=== PATIENT | male | born 1990 | race Hispanic/Latino ===

== ENCOUNTER 2016-06-11 09:00 | Emergency (ER) | payer SELFPAY ==
[2016-06-11] MEDS ORDERED: Dexamethasone 4 mg/ml Vial ONE (09:19)
--- NOTE | 2016-06-11 09:31 | ERRECORD ---
[facility] EMERGENCY RECORD HPI FOOT (09:17 JPIP) CHIEF COMPLAINT: Patient presents for evaluation of Heavy feed bag fell on his foot. Was seen in ED 29Dec for same. HISTORIAN: History provided by patient. MECHANISM OF INJURY: Known mechanism, Mechanism of injury: contusion with feed bag. LOCATION: Symptoms are localized, most severe to proximal dorsal right foot. QUALITY: Pain is dull in nature. SEVERITY: Current severity of pain rated as 4/10. TIME COURSE: Sudden onset of symptoms, Date and time of onset was 29dec, Symptoms are improving, has improved but not enough per patient., are constant. ASSOCIATED WITH: No associated distal neuro complaint, No associated open wounds, Associated with pain on walking, No associated proximal injury, No associated tingling, No associated warmth. EXACERBATED BY: Patient's condition exacerbated by walking, Patient's condition exacerbated by bearing weight. RELIEVED BY: Patient's condition relieved by nothing. ROS (09:19 JPIP) MUSCULOSKELETAL: Historian reports injury, reports joint stiffness, denies joint swelling. SKIN: Historian denies rash, denies skin changes, denies skin lesions. NEUROLOGIC: Historian denies paresthesias. NOTES: All systems reviewed, negative except as described above. PAST MEDICAL HISTORY MEDICAL HISTORY: Tetanus immunization up to date, No past medical history, Flu vaccine not up to date, , Pneumococcal vaccine not up to date. No past medical history. (09:04 KMOR) MALE SURGICAL HISTORY: Patient has no surgical history. Patient has no surgical history. 06/05/16. (09:04 KMOR) PSYCHIATRIC HISTORY: No previous psychiatric history. (09:04 KMOR) SOCIAL HISTORY: Patient denies alcohol use, Patient denies drug use, Patient currently uses tobacco, smokes cigarettes, 1 PACK EVERY 2 WEEKS. Patient currently uses tobacco. 06/05/16. (09:04 KMOR) FAMILY HISTORY: Family history is non-contributory to this case. (09:04 KMOR) NOTES: Nursing records reviewed, Old chart reviewed, Medication list reviewed. (09:21 JPIP) KNOWN ALLERGIES No Known Allergies CURRENT MEDICATIONS (09:04 KMOR) None &a-1R&a+25V*p+0X*x1361W*c202B*c15G*c2P*p-0X&a-25V&a+1R Name: Pete Richard : 1990 M25 MedRec: [id number] AcctNum: [id number] Prepared: ThuJun 11, 2016 09:29 by Interface Page 1 of 3 pMD [facility] EMERGENCY RECORD VITAL SIGNS VITAL SIGNS: Resp: 18, Pain: 4, Time: 06/11/2016 09:03. (09:03 KMOR) BP: 135/76, Pulse: 83, Temp: 98.1 (Oral), O2 sat: 96 on Room Air, Time: 06/11/2016 09:04. (09:04 KMOR) PHYSICAL EXAM (09:19 JPIP) CONSTITUTIONAL: Vital Signs Reviewed, Patient afebrile, Pulse normal, Blood pressure normal, Respiratory rate normal, Patient appears, uncomfortable, Patient alert and oriented to person, place and time, Nursing notes reviewed. HEAD: Head exam included findings of head atraumatic, normocephalic. EYES: Eye exam included findings of eyelids normal to inspection, Conjunctiva normal, Sclera normal, no periorbital ecchymosis, no periorbital edema, no periorbital erythema. RESPIRATORY CHEST: Respiratory exam included findings of no respiratory distress. LOWER EXTREMITY: Lower extremity exam included findings of inspection normal, no abrasions, no contusions, no deformity, no lacerations, Range of motion, Right ankle:, Active range of motion causes pain, Passive range of motion causes pain, Pedal pulse normal, capillary refill less than 2 seconds, distal motor intact, no edema, Tendon function normal, Foot tenderness, right foot, dorsal, proximal foot TTP, no edema no discoloration no swelling. NEURO: Phong coma scale 15, no focal motor deficits. SKIN: Skin exam included findings of skin warm, dry, and normal in color. PSYCHIATRIC: Psychiatric exam included findings of patient oriented to person place and time, Normal affect. MEDICATION ADMINISTRATION SUMMARY Drug Name: dexamethasone, Dose Ordered: 12 mg, Route: Oral, Status: Given, Time: 09:20 06/11/2016, Detailed record available in Medication Service section. DOCTOR NOTES (09:16 JPIP) TEXT: advised patient if symptoms continue may need to have an MRI, will need to follow up with PCP to schedule this. PROBLEM LIST No recorded problems DIAGNOSIS (09:22 JPIP) FINAL: PRIMARY: Foot contusion. &a-1R&a+25V*p+0X*e0708M*c202B*c15G*c2P*p-0X&a-25V&a+1R Name: Pete Richard : 1990 [facility] MedRec: [id number] AcctNum: [id number] Prepared: ThuJun 11, 2016 09:29 by Interface Page 2 of 3 pMD [facility] EMERGENCY RECORD PRESCRIPTION (09:13 JPIP) diclofenac oral: TABLET, DELAYED RELEASE (ENTERIC COATED) : 75 mg : ORAL : Quantity: 1 Unit: tab(s) Route: ORAL Schedule: 2 times a day (with meals) Dispense: 30 May substitute. Refills: No Refills . NOTES: as needed for pain No refills. DISPOSITION PATIENT: Disposition Type: Discharge, Disposition: *Discharge Home, Condition: Good. (09:22 JPIP) Patient left the department. (09:27 ERUI) Benavidez: DOREEN=TONY Mutsafa, Loretta JPIP=DO Garcia Joseph KMOR=TONY Hannon, Trena &a-1R&a+25V*p+0X*p5438A*c202B*c15G*c2P*p-0X&a-25V&a+1R Name: Pete Richard : 1990 5 MedRec: [id number] AcctNum: [id number] Prepared: ThuJun 11, 2016 09:29 by Interface Page 3 of 3 pMD MTDD
--- NOTE | 2016-06-11 09:34 | PICIS ---
[facility] EMERGENCY RECORD TRIAGE (09:04 KMOR) TRIAGE NOTES: Right foot pain x 1 week, no getting better. (09:04 KMOR) PATIENT: NAME: Pete Richard, AGE: 25, GENDER: male, : Sun 1990, TIME OF GREET: ThuJun 11, 2016 09:00, PREFERRED LANGUAGE: Romanian, ETHNICITY: or , ECODE BILLING MAP: [facility], SSN: [id number], Zip Code: [address], KG WEIGHT: [phone], PHONE: , , , PERSON ID: [id number], PAYMENT: SJX Self Pay, PCP: none. (09:04 KMOR) COMPLAINT: right foot pain. (09:04 KMOR) ADMISSION: URGENCY: 4 Non Urgent, ADMISSION SOURCE: Home, TRANSPORT: CAR, BED: ER -02. (09:04 KMOR) PROVIDERS: TRIAGE NURSE: Trena Hannon RN. (09:04 KMOR) VITAL SIGNS: Resp 18, Pain 4, Time 06/11/2016 09:03. (09:03 KMOR) BP 135/76, Pulse 83, Temp 98.1, (Oral), O2 Sat 96, on Room Air, Time 06/11/2016 09:04. (09:04 KMOR) PREVIOUS VISIT ALLERGIES: No Known Allergies. (09:04 KMOR) No Known Allergies. (09:04 KMOR) KNOWN ALLERGIES No Known Allergies CURRENT MEDICATIONS (09:04 KMOR) None VITAL SIGNS VITAL SIGNS: Resp: 18, Pain: 4, Time: 06/11/2016 09:03. (09:03 KMOR) BP: 135/76, Pulse: 83, Temp: 98.1 (Oral), O2 sat: 96 on Room Air, Time: 06/11/2016 09:04. (09:04 KMOR) NURSING ASSESSMENT: EXTREMITY LOWER (09:07 KMOR) CONSTITUTIONAL: Patient arrives ambulatory, Gait steady, History obtained from patient, Patient appears comfortable, Patient cooperative, Patient alert, Oriented to person, place and time, Skin warm, Skin dry, Skin normal in color, Mucous membranes pink, Mucous membranes moist, Patient is well-groomed, Patient complains of Right foot pain, Right foot pain x1 week after dropping 150ibs on foot. No fx, no deformity, no swelling. Patient reports pain worse with ambulatory and weight baring. PAIN: aching pain, to the right ankle, on a scale 0-10 patient rates pain as 4, Pain exacerbated by, ambulation. LEFT LOWER EXTREMITY: Left lower extremity assessment findings include capillary refill less than 2 seconds, Skin color normal, Skin temperature warm, Distal sensation intact, Muscle tone normal, muscle strength 5, no edema present, dorsalis pedis pulse is +3. RIGHT LOWER EXTREMITY: Right lower extremity assessment findings include capillary refill less than 2 seconds, Skin color normal, Skin &a-1R&a+25V*p+0X*a3170E*c202B*c15G*c2P*p-0X&a-25V&a+1R Name: Pete Richard : 1990 M25 MedRec: [id number] AcctNum: [id number] Prepared: ThuJun 11, 2016 09:30 by Interface Page 1 of 5 pMD [facility] EMERGENCY RECORD temperature warm, Distal sensation intact, Muscle tone normal, muscle strength 5, no edema present, dorsalis pedis pulse is +3, Inspection findings include no contusion, Inspection findings include no deformity, Inspection findings include no shortening of leg, Inspection findings include no swelling. NOTES: Patient tolerated procedure well. NURSING PROCEDURE: DISCHARGE NOTE (09:25 ERUI) DISCHARGE: Patient discharged to home, ambulating without assistance, driving self, unaccompanied, Summary of Care printed/ provided, Discharge instructions given to patient, Simple or moderate discharge teaching performed, Prescriptions given and instructions on side effects given, Name of prescription(s) given: diclofenac, Above person(s) verbalized understanding of discharge instructions and follow-up care. BELONGINGS: Belongings remain with patient, Valuables remain with patient. SAFETY: Side rails up, Cart/Stretcher in lowest position, Call light within reach, Hospital ID band on. NURSING PROCEDURE: SPLINTING (09:19 KMOR) PATIENT IDENTIFIER: Patient actively involved in identification process, Patient's identity verified by patient stating name, Patient's identity verified by patient stating date. SPLINTING: Splinting indicated for pain control, Splint applied to, the right ankle, by TONY Albrecht, 3 inch anjelica wrap applied, Immobilized in position of comfort. FOLLOW-UP: After procedure, capillary refill less than 2 seconds, After procedure, distal circulation intact, After procedure, distal motor function intact, After procedure, distal sensation intact, After procedure, distal pulses present. NOTES: Patient tolerated procedure well. ORDER DETAILS Order Name: IMMOBILIZE AFFECTED AREA ED, Status: Done, Time: 09:19 06/11/2016, User: KMOR, - Ordered for: DO Garcia Joseph, - Entered by: DO Garcia Joseph - ThuJun 11, 2016 09:14, - Quantity: 1. MEDICATION ADMINISTRATION SUMMARY Drug Name: dexamethasone, Dose Ordered: 12 mg, Route: Oral, Status: Given, Time: 09:20 06/11/2016, Detailed record available in Medication Service section. MEDICATION SERVICE dexamethasone: Order: dexamethasone - Dose: 12 mg : Oral &a-1R&a+25V*p+0X*r3640N*c202B*c15G*c2P*p-0X&a-25V&a+1R Name: Pete Richard : 1990 M25 MedRec: [id number] AcctNum: [id number] Prepared: ThuJun 11, 2016 09:30 by Interface Page 2 of 5 pMD [facility] EMERGENCY RECORD Schedule: Now Ordered by: Dawit Garcia DO Entered by: Dawit Garcia DO ThuJun 11, 2016 09:15 , Acknowledged by: Loretta Mustafa RN ThuJun 11, 2016 09:18 Documented as given by: Loretat Mustafa RN ThuJun 11, 2016 09:20 Patient, Medication, Dose, Route and Time verified prior to administration. Amount given: 12mg, Site: Medication administered P.O., Patient appears Awake and alert- acceptable, Correct patient, time, route, dose and medication confirmed prior to administration, Patient advised of actions and side-effects prior to administration, Allergies confirmed and medications reviewed prior to administration. : Follow Up : Response assessment performed, No signs or symptoms of allergic reaction noted. (09:25 ERUI) HPI FOOT (09:17 JPIP) CHIEF COMPLAINT: Patient presents for evaluation of Heavy feed bag fell on his foot. Was seen in ED 29Dec for same. HISTORIAN: History provided by patient. MECHANISM OF INJURY: Known mechanism, Mechanism of injury: contusion with feed bag. LOCATION: Symptoms are localized, most severe to proximal dorsal right foot. QUALITY: Pain is dull in nature. SEVERITY: Current severity of pain rated as 4/10. TIME COURSE: Sudden onset of symptoms, Date and time of onset was 29dec, Symptoms are improving, has improved but not enough per patient., are constant. ASSOCIATED WITH: No associated distal neuro complaint, No associated open wounds, Associated with pain on walking, No associated proximal injury, No associated tingling, No associated warmth. EXACERBATED BY: Patient's condition exacerbated by walking, Patient's condition exacerbated by bearing weight. RELIEVED BY: Patient's condition relieved by nothing. ROS (09:19 JPIP) MUSCULOSKELETAL: Historian reports injury, reports joint stiffness, denies joint swelling. SKIN: Historian denies rash, denies skin changes, denies skin lesions. NEUROLOGIC: Historian denies paresthesias. NOTES: All systems reviewed, negative except as described above. PAST MEDICAL HISTORY MEDICAL HISTORY: Tetanus immunization up to date, No past medical history, Flu vaccine not up to date, , Pneumococcal vaccine not up to date. No past medical history. (09:04 KMOR) MALE SURGICAL HISTORY: Patient has no surgical history. Patient has no surgical history. 06/05/16. (09:04 KMOR) PSYCHIATRIC HISTORY: No previous psychiatric history. &a-1R&a+25V*p+0X*m8746I*c202B*c15G*c2P*p-0X&a-25V&a+1R Name: Pete Richard : 1990 M25 MedRec: [id number] AcctNum: [id number] Prepared: ThuJun 11, 2016 09:30 by Interface Page 3 of 5 pMD [facility] EMERGENCY RECORD (09:04 KMOR) SOCIAL HISTORY: Patient denies alcohol use, Patient denies drug use, Patient currently uses tobacco, smokes cigarettes, 1 PACK EVERY 2 WEEKS. Patient currently uses tobacco. 06/05/16. (09:04 KMOR) FAMILY HISTORY: Family history is non-contributory to this case. (09:04 KMOR) NOTES: Nursing records reviewed, Old chart reviewed, Medication list reviewed. (09:21 JPIP) PHYSICAL EXAM (09:19 JPIP) CONSTITUTIONAL: Vital Signs Reviewed, Patient afebrile, Pulse normal, Blood pressure normal, Respiratory rate normal, Patient appears, uncomfortable, Patient alert and oriented to person, place and time, Nursing notes reviewed. HEAD: Head exam included findings of head atraumatic, normocephalic. EYES: Eye exam included findings of eyelids normal to inspection, Conjunctiva normal, Sclera normal, no periorbital ecchymosis, no periorbital edema, no periorbital erythema. RESPIRATORY CHEST: Respiratory exam included findings of no respiratory distress. LOWER EXTREMITY: Lower extremity exam included findings of inspection normal, no abrasions, no contusions, no deformity, no lacerations, Range of motion, Right ankle:, Active range of motion causes pain, Passive range of motion causes pain, Pedal pulse normal, capillary refill less than 2 seconds, distal motor intact, no edema, Tendon function normal, Foot tenderness, right foot, dorsal, proximal foot TTP, no edema no discoloration no swelling. NEURO: Phong coma scale 15, no focal motor deficits. SKIN: Skin exam included findings of skin warm, dry, and normal in color. PSYCHIATRIC: Psychiatric exam included findings of patient oriented to person place and time, Normal affect. EVENTS TRANSFER: Triage to Emergency Emergency Room -02. (ThuJun 11, 2016 09:04 KMOR) Removed from Emergency Emergency Room -02. (09:27 ERUI) O2SAT INTERPRETATION (09:21 JPIP) O2SAT: Single pulse oximetry, Oxygen saturation 96%, on room air, Oxygen saturation interpretation: Normal, No intervention required. DOCTOR NOTES (09:16 JPIP) TEXT: advised patient if symptoms continue may need to have an MRI, will need to follow up with PCP to schedule this. &a-1R&a+25V*p+0X*u8831E*c202B*c15G*c2P*p-0X&a-25V&a+1R Name: Pete Richard : 1990 M25 MedRec: [id number] AcctNum: [id number] Prepared: ThuJun 11, 2016 09:30 by Interface Page 4 of 5 pMD [facility] EMERGENCY RECORD PROBLEM LIST No recorded problems DIAGNOSIS (09:22 JPIP) FINAL: PRIMARY: Foot contusion. DISPOSITION PATIENT: Disposition Type: Discharge, Disposition: *Discharge Home, Condition: Good. (09:22 JPIP) Patient left the department. (09:27 ERUI) INSTRUCTION (09:16 JPIP) DISCHARGE: CONTUSION, FOOT, TENDONITIS. SPECIAL: Do not take motrin/ibuprofen/alleve/naprosyn while taking the diclofenac Follow up with Primary Care Physician within 72 hours Return to the Emergency Department for increased symptoms problems or concerns. PRESCRIPTION (09:13 JPIP) diclofenac oral: TABLET, DELAYED RELEASE (ENTERIC COATED) : 75 mg : ORAL : Quantity: 1 Unit: tab(s) Route: ORAL Schedule: 2 times a day (with meals) Dispense: 30 May substitute. Refills: No Refills . NOTES: as needed for pain No refills. IMAGING *DISCHARGE INSTRUCTIONS RECEIPT: Image captured from scanner. (09:26 ERUI) *SUPPLY CHARGE SHEET: Image captured from scanner. (09:27 ERUI) Benavidez: DOREEN=TONY Mustafa, Loretta JPIP=DO Garcia Joseph KMOR=TONY Hannon, Trena &a-1R&a+25V*p+0X*v9955C*c202B*c15G*c2P*p-0X&a-25V&a+1R Name: Pete Richard : 1990 M25 MedRec: [id number] AcctNum: [id number] Prepared: ThuJun 11, 2016 09:30 by Interface Page 5 of 5 pMD MTDD
== END 2016-06-11 09:25 | disposition home or self-care (01) ==
LOC: BURERS 09:00
DX: S90.31XA Contusion of right foot, initial encounter (principal); F17.210 Nicotine dependence, cigarettes, uncomplicated; W20.8XXA Other cause of strike by thrown, projected or falling object, initial encounter
CPT/HCPCS: 99283; J1100

== ENCOUNTER 2016-06-23 09:22 | Emergency (ER) | payer SELFPAY ==
--- NOTE | 2016-06-23 10:02 | ERRECORD ---
[facility] EMERGENCY RECORD PAST MEDICAL HISTORY (09:33 KMOR) MEDICAL HISTORY: Tetanus immunization up to date, No past medical history, Flu vaccine not up to date, , Pneumococcal vaccine not up to date. MALE SURGICAL HISTORY: Patient has no surgical history. PSYCHIATRIC HISTORY: No previous psychiatric history. SOCIAL HISTORY: Patient denies alcohol use, Patient denies drug use, Patient currently uses tobacco, smokes cigarettes, 1 PACK EVERY 2 WEEKS. Patient currently uses tobacco. FAMILY HISTORY: Family history is non-contributory to this case. KNOWN ALLERGIES No Known Allergies CURRENT MEDICATIONS (09:30 KMOR) None VITAL SIGNS (09:27 LGIB) VITAL SIGNS: BP: 113/84, Pulse: 90, Resp: 16 (Non-Labored), Temp: 98.6 (Oral), Pain: 3, O2 sat: 99 on Room Air, Time: 06/23/2016 09:27. PROBLEM LIST No recorded problems DIAGNOSIS (09:34 MBRI) FINAL: PRIMARY: right foot contusion. PRESCRIPTION (09:35 MBRI) Motrin: TABLET : 800 mg : ORAL : Quantity: 1 Unit: tab(s) Route: ORAL Schedule: every 8 hours PRN Dispense: 30 May substitute. Refills: No Refills . NOTES: No refills. DISPOSITION PATIENT: Disposition Type: Discharge, Disposition: *Discharge Home, Condition: Good. (09:34 MBRI) Patient left the department. (09:40 LGIB) Benavidez: KMOR=TONY Hannon, Trena LGIB=TONY Vieira, Beverly MBRI=DO Gonzalez Matthew &a-1R&a+25V*p+0X*i4545O*c202B*c15G*c2P*p-0X&a-25V&a+1R Name: Pete Richard : 1990 M25 MedRec: [id number] AcctNum: [id number] Prepared: ThuJun 23, 2016 09:42 by Interface Page 1 of 1 pMD MTDD
--- NOTE | 2016-06-23 10:08 | PICIS ---
[facility] EMERGENCY RECORD TRIAGE (ThuJun 23, 2016 09:29 KMOR) TRIAGE NOTES: Needs clearance to go back to work after injury to right foot. (ThuJun 23, 2016 09:29 KMOR) PATIENT: NAME: Pete Richard, AGE: 25, GENDER: male, : Sun 1990, TIME OF GREET: ThuJun 23, 2016 09:23, PREFERRED LANGUAGE: Hebrew, ETHNICITY: or , ECODE BILLING MAP: [place], SSN: [id number], Zip Code: [address], KG WEIGHT: 113.40, PHONE: , , , PERSON ID: [id number], PAYMENT: [employer] Self Pay, PCP: none. (ThuJun 23, 2016 09:29 KMOR) COMPLAINT: Right foot pain. (ThuJun 23, 2016 09:29 KMOR) ADMISSION: URGENCY: 5 [employer], ADMISSION SOURCE: Home, TRANSPORT: CAR, BED: ER -02. (ThuJun 23, 2016 09:29 KMOR) ASSESSMENT: Assessment: A&OX4. RR EVEN AND UNLABORED., Symptoms began greater than 1 week ago. (09:33 KMOR) IMMUNIZATIONS: Flu vaccine not up to date, Tetanus not up to date, Pneumococcal vaccine not up to date. (09:33 KMOR) SIRS SCORING: Heart Rate 55-109 (0), Temp range 96.8-101.1 (0), respiratory rate 12-24 (0), Mental Status altered: no (0), Infection or Suspected Infection: No. (09:33 KMOR) TRIAGE SCREENING: Patient denies suicidal ideation, Patient denies presence of domestic violence. (09:33 KMOR) PROVIDERS: TRIAGE NURSE: Trena Hannon RN. (ThuJun 23, 2016 09:29 KMOR) PREVIOUS VISIT ALLERGIES: No Known Allergies. (ThuJun 23, 2016 09:29 KMOR) No Known Allergies. (09:33 KMOR) KNOWN ALLERGIES No Known Allergies CURRENT MEDICATIONS (09:30 KMOR) None VITAL SIGNS (09:27 LGIB) VITAL SIGNS: BP: 113/84, Pulse: 90, Resp: 16 (Non-Labored), Temp: 98.6 (Oral), Pain: 3, O2 sat: 99 on Room Air, Time: 06/23/2016 09:27. NURSING ASSESSMENT: EXTREMITY LOWER (09:33 KMOR) CONSTITUTIONAL: Patient arrives ambulatory, Gait steady, History obtained from patient, Patient appears comfortable, Patient cooperative, Patient alert, Oriented to person, place and time, Skin warm, Skin dry, Skin normal in color, Mucous membranes pink, Mucous membranes moist, Patient is well-groomed, Patient complains of Right foot injury, Right foot injury 2 weeks ago, needs clearance to go back to work. Reports pain improving and able to bare weight. PAIN: dull pain, to the right ankle, on a scale 0-10 patient rates pain as 3. LEFT LOWER EXTREMITY: Left lower extremity assessment findings &a-1R&a+25V*p+0X*[id number]*c202B*c15G*c2P*p-0X&a-25V&a+1R Name: Pete Richard : 1990 M25 MedRec: [id number] AcctNum: [id number] Prepared: ThuJun 23, 2016 09:48 by Interface Page 1 of 4 pMD [facility] EMERGENCY RECORD include capillary refill less than 2 seconds, Skin color normal, Skin temperature warm, Distal sensation intact, Muscle tone normal, muscle strength 5, no edema present. RIGHT LOWER EXTREMITY: Right lower extremity assessment findings include capillary refill less than 2 seconds, Skin color normal, Skin temperature warm, Distal sensation intact, Muscle tone normal, muscle strength 5, dorsalis pedis pulse is +3, Inspection findings include no contusion, Inspection findings include no redness, Inspection findings include no swelling. NOTES: Patient tolerated procedure well. NURSING PROCEDURE: DISCHARGE NOTE (09:40 LGIB) DISCHARGE: Patient discharged to home, ambulating without assistance, driving self, unaccompanied, Summary of Care printed/ provided, Discharge instructions given to patient, Simple or moderate discharge teaching performed, Prescriptions given and instructions on side effects given, Above person(s) verbalized understanding of discharge instructions and follow-up care, Patient treated and evaluated by physician. BELONGINGS: Belongings and valuables with patient at time of discharge include:, Belongings remain with patient, Valuables remain with patient. HPI FOLLOW UP VISIT (09:42 MBRI) CHIEF COMPLAINT: Patient presents for evaluation of follow up visit to [facility] with injury to his right foot about 2 weeks ago at work and needs a work notes stating that he can return to work. Was sent by work today. HISTORIAN: History provided by patient. LOCATION: Symptoms are localized, most severe to Right lat foot and ankle. QUALITY: Pain is dull in nature, described as aching. TIME COURSE: Sudden onset of symptoms, 2, weeks ago, Symptoms are improving, are intermittent. ASSOCIATED WITH: Associated with clinical improvement, Associated with improvement of pain, Associated with decreased swelling. RELIEVED BY: Patient's condition relieved by over the counter medications, Patient's condition relieved by rest, Patient's condition relieved by time. ROS (09:43 MBRI) CONSTITUTIONAL: Negative constitutional review of systems. MUSCULOSKELETAL: Historian denies arthralgias, denies back pain, denies deformity, denies fall, reports injury, denies joint redness, denies joint swelling. SKIN: Negative skin review of systems. NEUROLOGIC: Negative neurologic review of systems. PAST MEDICAL HISTORY (09:33 KMOR) MEDICAL HISTORY: Tetanus immunization up to date, No past &a-1R&a+25V*p+0X*f0151L*c202B*c15G*c2P*p-0X&a-25V&a+1R Name: Pete Richard : 1990 M25 MedRec: [id number] AcctNum: [id number] Prepared: ThuJun 23, 2016 09:48 by Interface Page 2 of 4 D [facility] EMERGENCY RECORD medical history, Flu vaccine not up to date, , Pneumococcal vaccine not up to date. MALE SURGICAL HISTORY: Patient has no surgical history. PSYCHIATRIC HISTORY: No previous psychiatric history. SOCIAL HISTORY: Patient denies alcohol use, Patient denies drug use, Patient currently uses tobacco, smokes cigarettes, 1 PACK EVERY 2 WEEKS. Patient currently uses tobacco. FAMILY HISTORY: Family history is non-contributory to this case. PHYSICAL EXAM (09:44 MBRI) CONSTITUTIONAL: Vital signs reviewed. LOWER EXTREMITY: Lower extremity exam included findings of inspection normal, Range of motion normal, Motor strength normal, Sensation intact, Pedal pulse normal, Tonia's negative, no cyanosis, no clubbing, no edema, no calf tenderness, Some mild ttp of the lat mid foot and the lat ankle tendon complex. Ankle is stable and normal rom. Normal appearance noted. Nml CR and sensation noted. Pt able to ambulate with a slight limp. Xray from previous visit was reviewed and neg for fracture. SKIN: Skin exam included findings of skin warm, dry, and normal in color. EVENTS TRANSFER: Triage to Emergency Emergency Room -02. (ThuJun 23, 2016 09:29 KMOR) Removed from Emergency Emergency Room -02. (09:40 LGIB) O2SAT INTERPRETATION (09:44 MBRI) O2SAT: Oxygen saturation interpretation: Normal. PROBLEM LIST No recorded problems DIAGNOSIS (09:34 MBRI) FINAL: PRIMARY: right foot contusion. DISPOSITION PATIENT: Disposition Type: Discharge, Disposition: *Discharge Home, Condition: Good. (09:34 MBRI) Patient left the department. (09:40 LGIB) INSTRUCTION (09:35 MBRI) DISCHARGE: FOOT CONTUSION. FOLLOWUP: [facility], [facility], [address] [place] [address], , Follow up with Primary Care Physician in 7-10 days. SPECIAL: Please return for any further issues or concerns, we would be happy to see you. &a-1R&a+25V*p+0X*[id number]*c202B*c15G*c2P*p-0X&a-25V&a+1R Name: Pete Richard : 1990 M25 MedRec: [id number] AcctNum: [id number] Prepared: ThuJun 23, 2016 09:48 by Interface Page 3 of 4 pMD [facility] EMERGENCY RECORD We hope you feel better soon. Follow-up with your PCP Tylenol or Advil for Pain May return to work. PRESCRIPTION (09:35 MBRI) Motrin: TABLET : 800 mg : ORAL : Quantity: 1 Unit: tab(s) Route: ORAL Schedule: every 8 hours PRN Dispense: 30 May substitute. Refills: No Refills . NOTES: No refills. IMAGING (09:41 LGIB) *DISCHARGE INSTRUCTIONS RECEIPT: Image captured from scanner. *SUPPLY CHARGE SHEET: Image captured from scanner. Benavidez: NANNETTEOR=TONY Hannon, Trena LGIB=TONY Vieira, Beverly MBRI=DO Gonzalez Matthew &a-1R&a+25V*p+0X*[id number]*c202B*c15G*c2P*p-0X&a-25V&a+1R Name: Pete Richard : 1990 M25 MedRec: [id number] AcctNum: [id number] Prepared: ThuJun 23, 2016 09:48 by Interface Page 4 of 4 pMD MTDD
== END 2016-06-23 09:39 | disposition home or self-care (01) ==
LOC: BURERS 09:22
DX: S90.31XA Contusion of right foot, initial encounter (principal); F17.210 Nicotine dependence, cigarettes, uncomplicated; X58.XXXA Exposure to other specified factors, initial encounter
CPT/HCPCS: 99283

== ENCOUNTER 2016-09-19 07:55 | Emergency (ER) | payer SELFPAY ==
[2016-09-19] MEDS ORDERED: Ibuprofen 800 MG TAB ONE (08:40)
[2016-09-19] MEDS ORDERED: HYDROcodone/Acetaminophen 5/325 mg Tablet ONE (08:40)
[2016-09-19 08:53] LABS: Bilirubin Negative (Negative); Blood, Urine Negative (Negative); Clarity Slightly Cloudy (Clear); Glucose, Urine (Dipstick) Negative (Negative); Leukocyte Negative (Negative); Nitrite Negative (Negative); Protein, Urine (Dipstick) Negative (Neg-Trace); Urobilinogen 0.2 mg/dL (0.2-1.0)
== END 2016-09-19 09:15 | disposition home or self-care (01) ==
LOC: BURERS 07:55
DX: M54.5 Low back pain (principal); F17.210 Nicotine dependence, cigarettes, uncomplicated
CPT/HCPCS: 81003; 99283

== ENCOUNTER 2016-10-15 08:15 | Emergency (ER) | payer SELFPAY ==
[2016-10-15] MEDS ORDERED: HYDROcodone/Acetaminophen 10/325 mg Tablet ONE (08:44)
[2016-10-15] MEDS ORDERED: Ibuprofen 800 MG TAB ONE (08:44)
--- NOTE | 2016-10-15 21:45 | RAD ---
LEFT THUMB THREE VIEWS 10/15/16 No fracture or dislocation was seen. The lateral joint space of the first MCP joint is wider than th e medial. This raises the question of ligamentous laxity or damage to the lateral collateral ligamen t. No bony avulsions are seen from the base of the proximal phalanx. IMPRESSION: No acute fracture but evidence of lateral laxity at the first MCP joint. POS: HOME
== END 2016-10-15 09:01 | disposition home or self-care (01) ==
LOC: BURERS 08:15
DX: S60.012A Contusion of left thumb without damage to nail, initial encounter (principal); F17.210 Nicotine dependence, cigarettes, uncomplicated; W22.8XXA Striking against or struck by other objects, initial encounter

== ENCOUNTER 2016-10-21 07:17 | Emergency (ER) | payer SELFPAY | END 2016-10-21 07:50 | disposition home or self-care (01) | LOC: BURERS 07:17 | DX: S63.642A Sprain of metacarpophalangeal joint of left thumb, initial encounter (principal); F17.210 Nicotine dependence, cigarettes, uncomplicated; X58.XXXA Exposure to other specified factors, initial encounter | CPT/HCPCS: 99283 ==

== ENCOUNTER 2017-04-08 18:39 | Emergency (ER) | payer SELFPAY ==
[2017-04-08 19:20] LABS: #Basophils 0.1 thou/uL (0.0-0.2); #Eosinphils 0.3 thou/uL (0.0-0.7); #Lymphocytes 3.5 thou/uL (1.20-3.40); #Monocytes 0.6 thou/uL (0.11-0.59); %Basophils 1.5 % (0.0-1.0); %Eosinophils 3.2 % (0.0-10.0); %Lymphocytes 41.1 % (21.0-51.0); %Monocytes 6.8 % (0.0-10.0); %Neutrophils 47.4 % (42.0-75.0); Hemoglobin 14.9 g/dL (14.0-18.0); Mean Corpuscular HGB CONC 34.2 g/dL (32.0-36.0); Mean Corpuscular Volume 93.6 fl (80.0-94.0); Mean Platelet Volume 6.9 fL (7.4-10.4); Platelet Count 228 thou/uL (130-400); RBC Distribution Width 11.8 % (11.5-14.5); Red Blood Cell (RBC) Count 4.66 mill/uL (4.70-6.10); White Blood Cell (WBC) Count 8.4 thou/uL (4.8-10.8)
[2017-04-08] MEDS ORDERED: Ketorolac Tromethamine 30 MG/ML VIAL ONE (19:20)
[2017-04-08 19:23] LABS: Bilirubin Negative (Negative); Blood, Urine Negative (Negative); Clarity Clear (Clear); Glucose, Urine (Dipstick) Negative (Negative); Leukocyte Negative (Negative); Nitrite Negative (Negative); Protein, Urine (Dipstick) Negative (Neg-Trace)
[2017-04-08 19:36] LABS: ALT (SGPT) 26 U/L (8-55); AST (SGOT) 21 U/L (5-34); Albumin 3.7 g/dL (3.5-5.0); Alkaline Phosphatase 58 U/L (40-150); Anion Gap 13 mmol/L (10-20); BUN (Urea Nitrogen) 13 mg/dL (8.9-20.6); Bilirubin, Total 0.2 mg/dL (0.2-1.2); Calc. Creatinine Clearance 0 mL/min (70-130); Calcium 8.8 mg/dL (7.8-10.44); Carbon Dioxide 25 mmol/L (22-29); Chloride 108 mmol/L (98-107); Estimated GFR-MDRD Greater than 90; Globulin 2.5 g/dL (2.4-3.5); Glucose 108 mg/dL (70-105); Lipase 21 U/L (8-78); Potassium 3.7 mmol/L (3.5-5.1); Protein, Total 6.2 g/dL (6.0-8.3); Sodium 142 mmol/L (136-145)
[2017-04-08] MEDS ORDERED: Dicyclomine 20 MG TAB ONE (20:02)
== END 2017-04-08 20:30 | disposition home or self-care (01) ==
LOC: BURERS 18:39
DX: K80.50 Calculus of bile duct without cholangitis or cholecystitis without obstruction (principal); F17.210 Nicotine dependence, cigarettes, uncomplicated
CPT/HCPCS: 80053; 81003; 83690; 85025; 96361; 96374; 96375; J1885

== ENCOUNTER 2017-06-18 12:07 | Emergency (ER) | payer SELFPAY ==
[2017-06-18] MEDS ORDERED: Ibuprofen 200 MG TAB ONE (12:23)
[2017-06-18] MEDS ORDERED: Albuterol Sulfate 1.25 MG/3 ML NEB ONE (12:26)
--- NOTE | 2017-06-18 13:14 | RAD ---
CHEST TWO VIEWS: Date: 06-18-17 Comparison: None. FINDINGS: There is some linear streaking in the lingular region of the left upper lobe. The linear nature makes it more likely that this is scar or atelectasis. No definite lobar consolidation or effusion was see n. The lung apices are clear. The heart is normal in size. There is no congestion or edema. On the lateral view there appears to be a slight amount of anterior wedging of a few of these lower t horacic vertebrae. Usually this is just physiologic in the age group. There is not really any endplat e irregularity, such as one might see in Scheuermann's disease. Old trauma is possible but not necess antonette to explain the findings. IMPRESSION: Minimal linear streaking on the left that is more likely old than new. POS: [facility]
== END 2017-06-18 12:50 | disposition home or self-care (01) ==
LOC: BURERS 12:07
DX: J06.9 Acute upper respiratory infection, unspecified (principal); F17.210 Nicotine dependence, cigarettes, uncomplicated
CPT/HCPCS: 71046; 99406